=== PATIENT | male | born 1980 | race African-American/Black ===

== ENCOUNTER 2016-12-30 09:52 | Emergency (ER) | payer SELFPAY ==
[~2016-12-30] VITALS: Ht 182.9 cm; Wt 85.0 kg
[~2016-12-30 09:52] MED LIST: BACT800T5 PO
[2016-12-30 09:55] VITALS: BP 130/75; PULSE 68; RESP 17; TEMP 98; O2SAT 98
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
[2016-12-30] MEDS ORDERED: SODIUM CHLORIDE 0.9% FLUSH 10 ML FLUSH IVF PRN (10:15)
[2016-12-30 10:29] LABS: AUTOMATED NEUTROPHIL # 3.2 TH/MM3 (1.8-7.7); BASOPHIL # 0.4 TH/MM3 (0-0.2); BASOPHIL % 7.5 % (0.0-2.0); EOSINOPHIL # 0.2 TH/MM3 (0-0.4); EOSINOPHIL % 3.2 % (0.0-4.0); HEMATOCRIT 41.3 % (39.0-51.0); LYMPH % 22.8 % (9.0-44.0); LYMPHOCYTE # 1.3 TH/MM3 (1.0-4.8); MEAN CELL VOLUME 84.4 FL (80.0-100.0); MEAN CORPUSCULAR HEMOGLOBIN 27.5 PG (27.0-34.0); MEAN CORPUSCULAR HGB CONC 32.6 % (32.0-36.0); MONO % 9.6 % (0.0-8.0); NEUT % 56.9 % (16.0-70.0); PLATELET COUNT 205 TH/MM3 (150-450); RED BLOOD COUNT 4.89 MIL/MM3 (4.50-5.90); RED CELL DISTRIBUTION WIDTH 13.3 % (11.6-17.2); WHITE BLOOD COUNT 5.6 TH/MM3 (4.0-11.0)
[2016-12-30 10:32] LABS: HEMO FLAGS DIFF FINAL
[2016-12-30 10:38] LABS: APTT (PATIENT) 29.1 SEC (24.3-30.1); PROTHROMBIN TIME - PATIENT 10.7 SEC (9.8-11.6)
[2016-12-30 10:43] LABS: ALT (GPT) 27 U/L (12-78)
[2016-12-30 10:44] LABS: ALKALINE PHOSPHATASE 62 U/L (45-117); TOTAL BILIRUBIN ADULT 0.5 MG/DL (0.2-1.0)
[2016-12-30 10:55] LABS: ANION GAP 7 MEQ/L (5-15); AST (GOT) 20 U/L (15-37); BLOOD UREA NITROGEN 11 MG/DL (7-18); CHLORIDE 107 MEQ/L (98-107); GLOMERULAR FILTRATION RATE 89 ML/MIN (>89); SODIUM (NA) 138 MEQ/L (136-145)
--- NOTE | 2016-12-30 11:08 | RADRPT ---
EXAM DATE/TIME: 12/30/2016 10:07 [facility] COMPARISON: No previous studies available for comparison. INDICATIONS : Pain left leg. MEDICAL HISTORY : Renal insufficiency. Villasenor's palsy. migrane. heart burn. depression. anxiety. SURGICAL HISTORY : Pneumothorax chest tube. ENCOUNTER: Initial ACUITY: 1 day PAIN SCORE: 3/10 LOCATION: Bilateral legs. TECHNIQUE: Venous ultrasound of the left and right leg was performed from the inguinal ligament to the proximal calf. Real-time, color Doppler and spectral tracing, compression and augmentation techniques were us ed. FINDINGS: RIGHT LEG: There is normal compressibility of the deep venous system from the inguinal region to the proximal ca lf. No echogenic clot is seen in the lumen of the common femoral, femoral, popliteal, and posterior tibial veins. There is a normal response of the venous system to proximal and distal augmentation an d respiration. LEFT LEG: There is normal compressibility of the deep venous system from the inguinal region to the proximal ca lf. No echogenic clot is seen in the lumen of the common femoral, femoral, popliteal, and posterior tibial veins. There is a normal response of the venous system to proximal and distal augmentation an d respiration. CONCLUSION: Normal examination. Mekhi Haney MD on December 30, 2016 at 10:54 Board Certified Radiologist. This report was verified electronically.
--- NOTE | 2016-12-30 11:35 | RADRPT ---
EXAM DATE/TIME: 12/30/2016 10:28 [facility] COMPARISON: No previous studies available for comparison. INDICATIONS : Short of breath, swollen bilateral lower legs. MEDICAL HISTORY : None. SURGICAL HISTORY : None. ENCOUNTER: Initial ACUITY: 1 day PAIN SCORE: 5/10 LOCATION: Bilateral chest FINDINGS: A single view of the chest demonstrates the lungs to be symmetrically aerated without evidence of mas s, infiltrate or effusion. The cardiomediastinal contours are unremarkable. Osseous structures are intact. CONCLUSION: 1. No acute cardiopulmonary disease. George Zamarripa MD on December 30, 2016 at 11:28 Board Certified Radiologist. This report was verified electronically.
[2016-12-30] MEDS ORDERED: FURO1TAB62 PO (12:07)
--- NOTE | 2016-12-31 10:40 | EKG ---
Date Performed: 12/30/2016 Time Performed: 10:14:59 PTAGE: 36 years EKG: SINUS BRADYCARDIA BORDERLINE ECG PREVIOUS TRACING : 03/15/2012 13.46 DOCTOR: Juan Briggs Interpretating Date/Time 12/31/2016 10:37:46
== END 2016-12-30 12:27 | disposition home or self-care (01) ==
LOC: NEPE 09:52
DX: R60.0 Localized edema (principal); R94.31 Abnormal electrocardiogram [ECG] [EKG]; F17.210 Nicotine dependence, cigarettes, uncomplicated
CPT/HCPCS: 71010; 80053; 83880; 85025; 85610; 85730; 93005; 93970